=== PATIENT | female | born 1970 | race Caucasian/White ===

== ENCOUNTER → 2017-02-20 | Outpatient (CLI) | payer BC | END | disposition disaster alternative care site (69) | LOC: GRAD 12:39 | DX: C20 Malignant neoplasm of rectum (principal); G47.01 Insomnia due to medical condition; R19.7 Diarrhea, unspecified; R91.8 Other nonspecific abnormal finding of lung field; K76.0 Fatty (change of) liver, not elsewhere classified | CPT/HCPCS: Q9967 ==

== ENCOUNTER → 2017-05-21 | Outpatient (CLI) | payer BC | END | disposition disaster alternative care site (69) | LOC: GRAD 14:15 | DX: C18.9 Malignant neoplasm of colon, unspecified (principal); C20 Malignant neoplasm of rectum; G47.01 Insomnia due to medical condition; K76.9 Liver disease, unspecified; R19.7 Diarrhea, unspecified; R91.8 Other nonspecific abnormal finding of lung field | CPT/HCPCS: Q9967 ==